=== PATIENT | female | born 1960 | race Caucasian/White ===

== ENCOUNTER 2024-09-01 13:32 | Outpatient (CLI) | payer OTHER ==
[~2024-09-01 13:32] MED LIST: Iopamidol 370 76% 100 ML VIAL ONE
== END 2024-09-01 13:33 | disposition home or self-care (01) ==
LOC: BICCT 13:32
PROVIDERS: ATTEND Urology
DX: N30.41 Irradiation cystitis with hematuria (principal); N13.30 Unspecified hydronephrosis; N32.89 Other specified disorders of bladder
CPT/HCPCS: 36415; 74178; 82565

== ENCOUNTER 2025-02-15 15:20 | Outpatient (CLI) | payer OTHER | END 2025-02-15 15:21 | disposition home or self-care (01) | LOC: RAD 15:20 | PROVIDERS: ATTEND Nurse Practitioner Family | DX: N30.41 Irradiation cystitis with hematuria (principal) | CPT/HCPCS: 71046 ==

== ENCOUNTER → 2025-03-17 | Day surgery (SDC) | payer OTHER ==
[~2025-03-17] MED LIST changes: +Iopamidol 100 ML FS ONE; -Iopamidol 370 76% 100 ML VIAL ONE; +LevoFLOXacin 500 mg/D5W 500 MG in Premix 1 BAG IVPB SCH; +Lidocaine 1% w/Epinephrine 1:100K 20 ML VIAL ONE; +Sodium Bicarbonate 2.5 MEQ/5 ML SDV ONE
== END ==
LOC: SPEC 09:34
PROVIDERS: ATTEND Urology
PROC: 0T25X0Z Change Drainage Device in Kidney, External Approach (ICD-10-PCS; principal; 2025-03-17)
DX: N13.1 Hydronephrosis with ureteral stricture, not elsewhere classified (principal)
CPT/HCPCS: 50435; 75984; J1956; J3010; J7030; Q9967; 36000; C1729; C1769; J2250

== ENCOUNTER 2025-04-21 09:52 | Outpatient (CLI) | payer OTHER | END 2025-04-21 09:53 | disposition home or self-care (01) | LOC: RAD 09:52 | PROVIDERS: ATTEND Otolaryngology | DX: R13.12 Dysphagia, oropharyngeal phase (principal); R63.30 Feeding difficulties, unspecified | CPT/HCPCS: 74230 ==